=== PATIENT | female | born 1945 | race Two or more races ===

== ENCOUNTER 2019-06-16 08:10 | Inpatient (IN) | payer OTHER, MEDICAID ==
[~2019-06-16] VITALS: Ht 162.6 cm; Wt 61.4 kg
[2019-06-16] MEDS ORDERED: MECLIZINE HCL 25 MG TAB PO ONE (09:15)
[2019-06-16] MEDS ORDERED: cloNIDine HCL 0.1 MG TAB PO ONE (09:15)
[2019-06-16 09:32] LABS: Basophils # (auto) 0 uL; Basophils % (auto) 0.5 % (0.0-2.0); Eosinophils # (auto) 0.1 uL; Eosinophils % (auto) 0.7 % (0.0-7.0); Hematocrit 44.3 % (36.0-46.0); Hemoglobin 14.6 g/dL (12.2-16.2); Lymphocytes # (auto) 0.9 uL; Lymphocytes % (auto) 9.7 % (10.0-50.0); Mean Corpuscular Hemoglobin 29.5 pg (28.0-32.0); Mean Corpuscular Volume 89.2 fL (80.0-100.0); Monocytes # (auto) 0.5 uL; Monocytes % (auto) 5.2 % (0.0-12.0); Neutrophils # (auto) 7.6 uL; Neutrophils % (auto) 83.9 % (37.0-80.0); Platelet Count (auto) 232 10^3/uL (140-450); Red Blood Cells 4.97 10^6/uL (4.0-5.20); Red Cell Distribution Width 14.5 % (11.8-14.3); White Blood Cell 9.1 10^3/uL (4.4-10.8)
[2019-06-16 09:54] LABS: INR 1.04 (0.9-1.15); Partial Thromboplastin Time 27.6 sec (23.64-32.05)
[2019-06-16 09:56] LABS: Albumin 3.9 g/dL (3.4-5.0); Anion Gap 5 (5-15); Calcium 8.7 mg/dL (8.5-10.1); Carbon Dioxide 28 mmol/L (21-32); Chloride 110 mmol/L (98-107); Glucose 97 mg/dL (74-106); Potassium 4.6 mmol/L (3.5-5.1); Sodium 143 mmol/L (136-145)
[2019-06-16 10:00] LABS: Alanine Aminotransferase 14 U/L (13-56); Alkaline Phosphatase 103 U/L (45-117); Aspartate Aminotransferase 13 U/L (15-37); BUN/Creatinine Ratio 10.1; Bilirubin, Total 0.6 mg/dL (0.2-1.0); Blood Urea Nitrogen 9 mg/dL (7-18); GFR African American 80 mL/min; GFR Non-African American 66 mL/min
[2019-06-16] MEDS ORDERED: ACETAMINOPHEN 500 MG TAB PO PRN (12:15)
[2019-06-16] MEDS ORDERED: MORPHINE SULF INJ 2 MG/ML SYRINGE 1ML IV PRN ×2 (12:15)
[2019-06-16] MEDS ORDERED: hydrALAZINE HCL 20 MG/ML VL IV PRN (12:15)
[2019-06-16] MEDS ORDERED: ONDANSETRON HCL 4 MG/2 ML VIAL IV PRN (12:15)
[2019-06-16] MEDS ORDERED: HYDROcodone-ACET 5/325MG TAB PO PRN (12:15)
[2019-06-16] MEDS ORDERED: NITROGLYCERIN 0.4 MG SL TAB SL PRN (12:15)
[2019-06-16 12:54] LABS: Cholesterol 240 mg/dL (< 200); HDL Cholesterol 54 mg/dL (40-59); LDL Cholesterol 173 mg/dL (< 100); Triglycerides 119 mg/dL (< 150)
[2019-06-16] MEDS ORDERED: SODIUM CHLORIDE 0.9% 500 ML IV ONE (13:30)
[2019-06-16 14:52] LABS: Urine Bacteria NONE SEEN /hpf (None Seen); Urine Blood TRACE /uL (Negative); Urine Specific Gravity 1.008 (1.001-1.035); Urine WBC 1 /hpf (0 - 5)
--- NOTE | 2019-06-16 16:11 | NUR ---
Telemetry admit from ER AQUILINO ABEBE admitted to Telemetry unit after SBAR received. Patient oriented to NIKOLE GOMEZ RN primary RN, unit, room, bed, and unit policies regarding patient care and visiting hours. Patient now on continuous telemetry monitoring, tele box # 61 and telemetry reading on arrival to unit is Sinus bradycardia. No s/s of distress or SOB. Pt denies having any pain at this time. Bed in lowest and locked position with side rails upx2. Pt weighed by bedscale and encouraged to call if they need something. All questions and concerns addressed, patient verbalized understanding.
[2019-06-16 16:20] VITALS: BP 116/42
[2019-06-16 17:00] VITALS: BP 116/42
--- NOTE | 2019-06-16 19:30 | NUR ---
Opening Shift Note Assumed care of patient, awake and alert. No S/S of distress/SOB or pain. Insructed on POC and to callfor assist PRN, will continue to monitor for changes Q1hr and PRN. Fall and safety precautions in place. Call light within reach.
[2019-06-16 21:34] VITALS: BP 111/36
--- NOTE | 2019-06-16 23:30 | NUR ---
ACTIVITY Assisted patient to restroom for urination and back to bed. Patient ambulated with steady gait, but complained of dizziness. After patient was assisted back to bed, bedside commode provided and explained with assist from Swedish-speaking secondary RN to patient to use throughout night to prevent falls. Patient verbalized understanding and agreement. Fall precautions in place. Will continue to monitor
--- NOTE | 2019-06-17 04:00 | NUR ---
EKG EKG done at this time per order. Printed and placed in hard chart. Patient tolerated well. Will continue to monitor
[2019-06-17 04:53] VITALS: BP 116/44
[2019-06-17 05:36] LABS: Basophils # (auto) 0 uL; Basophils % (auto) 0.8 % (0.0-2.0); Eosinophils # (auto) 0.1 uL; Eosinophils % (auto) 2.3 % (0.0-7.0); Hematocrit 39.2 % (36.0-46.0); Hemoglobin 12.9 g/dL (12.2-16.2); Lymphocytes # (auto) 1.3 uL; Lymphocytes % (auto) 24.4 % (10.0-50.0); Mean Corpuscular Hemoglobin 29.7 pg (28.0-32.0); Mean Corpuscular Volume 90.1 fL (80.0-100.0); Monocytes # (auto) 0.4 uL; Monocytes % (auto) 7.6 % (0.0-12.0); Neutrophils # (auto) 3.4 uL; Neutrophils % (auto) 64.9 % (37.0-80.0); Nucleated Red Blood Cells % 0.1 %; Platelet Count (auto) 188 10^3/uL (140-450); Red Blood Cells 4.35 10^6/uL (4.0-5.20); Red Cell Distribution Width 14.7 % (11.8-14.3); White Blood Cell 5.3 10^3/uL (4.4-10.8)
[2019-06-17 05:51] LABS: Calcium 8.1 mg/dL (8.5-10.1); Potassium 4.4 mmol/L (3.5-5.1)
[2019-06-17 05:55] LABS: Albumin 3.3 g/dL (3.4-5.0); BUN/Creatinine Ratio 17.8; Bilirubin, Total 0.5 mg/dL (0.2-1.0); Total Protein 6.7 g/dL (6.4-8.2)
--- NOTE | 2019-06-17 06:30 | NUR ---
ACTIVITY Assisted patient to BSC and back to bed. With assist from Belarusian-speaking secondary RN, patient was educated on why she needs to use BSC versus ambulating to toilet. Patient was explained that due to her complaining of dizziness, she is at increased risk for falls. Patient was also educated that per cardiology progress notes, dizziness may be due to bradycardia and medication toxicity. Patient was updated on plan of care, verbalized understanding and agreement. Will continue to monitor
--- NOTE | 2019-06-17 07:26 | NUR ---
Opening Shift Note Assumed care of patient, awake and alert. No S/S of distress/SOB. PT denies having any pain at this time. Bed in lowest and locked position with side rails up x2 and call light in reach. Instructed on POC and to call for assist PRN, will continue to monitor for changes Q1hr and PRN.
[2019-06-17 09:00] VITALS: BP 117/57
--- NOTE | 2019-06-17 09:00 | NUR ---
ORTHOSTATIC BLOOD PRESSURE PER MD ORDERS, ORTHOSTATIC BLOOD PRESSURE READINGS INITIATED. LAYING: BP 117/57 HR 42 SITTING: BP 129/62 HR 53 STANDING: BP 111/45 HR 56
[2019-06-17] MEDS: FAMOTIDINE 20 MG TAB PO SCH (09:37)
[2019-06-17] MEDS: LISINOPRIL 20 MG TAB PO SCH (10:00)
--- NOTE | 2019-06-17 10:00 | NUR ---
SPOKE TO ANGIE YOUNG. VICE PRESIDENT PAYER NOTIFIED OF PATIENT HEART RATE IN THE 30'S. VICE PRESIDENT PAYER AWARE, NO NEW ORDERS AT THIS TIME.
[2019-06-17] MEDS ORDERED: METO-169 PO (10:16)
[2019-06-17] MEDS ORDERED: LISI40TA PO (10:16)
[2019-06-17] MEDS ORDERED: OME20T PO (10:16)
[2019-06-17 13:00] VITALS: BP 133/69
--- NOTE | 2019-06-17 13:40 | NUR ---
PATIENT WALKED WITH PT. PT HEART RATE INCREASED TO THE 50-59. STRIPPER COLOR YOUNG AT BEDSIDE DURING PT EVALUATION.
[2019-06-17] MEDS ORDERED: LORazepam 2MG/ML-1ML VIAL IV ONE (15:00)
--- NOTE | 2019-06-17 16:15 | NUR ---
Social Service consult regarding Advance Directives. Provided pt with information on Advance Directive and Durable Power of Autoc[employer] Form. Pt verbalized understanding and accepted information. Will contact Plumber Assistant for any further concerns or issues.
[2019-06-17 17:06] VITALS: BP 154/84
--- NOTE | 2019-06-17 17:09 | NUR ---
Pt is an alert and oriented, kazakh speaking female that resides with her son, Leonid, who is her primary bullet swaging machine operator. Pt functions independently but does have a cane in the home. Son states he prepares all meals, does laundry, takes pt to appts and assists with whatever the pt may need. Per pt is not on home health or IHSS. Provided information on IHSS program and contact number as requested by son. Son to transport home upon discharge. Will continue to monitor and provide intervention as appropriate. Addendum: 06/17/19 at 1712 by JAYSON PAULA Amended: Links added.
--- NOTE | 2019-06-17 19:30 | NUR ---
OPENING NOTE REPORT RECEIVED FROM DAY SHIFT RN PATIENT IS A/OX4 RESTING IN BED. NO S/S OF DISTRESS. PATIENT C/O MILD HEADACHE AND IS REQUESTING PAIN MEDICATIONS. POC DISCUSSED FOR TONIGHT AND ALL QUESTIONS ANSWERED. FALL PRECAUTIONS IN PLACE, CALL LIGHT WITHIN REACH.
--- NOTE | 2019-06-17 19:30 | NUR ---
ENDORSED CARE TO NIGHT RNEILEEN.
[2019-06-17 22:00] VITALS: BP_SYST 129; BP_SYST 132; BP_SYST 136; BP_DIAS 65; BP_DIAS 73; BP_DIAS 75
[2019-06-17] MEDS ORDERED: ATORVASTATIN 20 MG TAB PO SCH (22:00)
--- NOTE | 2019-06-17 22:00 | NUR ---
ORTHOSTATIC VITALS: LAYIN/65, HR 51 SITTIN/75, HR 58 STANDIN/73, HR 56
[2019-06-18 05:00] VITALS: BP_SYST 143; BP_SYST 147; BP_SYST 150; BP_DIAS 116; BP_DIAS 81; BP_DIAS 82
--- NOTE | 2019-06-18 06:00 | NUR ---
ORTHOSTATIC VITALS: LAYIN/82, HR 52 SITTIN/81, HR 60 STANDIN/116, HR 66
--- NOTE | 2019-06-18 07:01 | NUR ---
CLOSING PATIENT IS RESTING IN BED, NO S/S OF DISTRESS. CALL LIGHT WITHIN REACH AND FALL PRECAUTIONS IN PLACE. WILL ENDORSE CARE TO AM SHIFT RN
--- NOTE | 2019-06-18 07:52 | NUR ---
Opening Note Assumed pt care from [facility] nurse. Pt is a/ox4 with no s/s of distress or SOB. Pt is currently laying in bed eating breakfast with no complaints. Discussed POC with pt; pt verbalized understanding. Safety measures maintained with call light within reach, bed in lowest position and side rails up. Will continue to monitor for changes q1hr and prn.
[2019-06-18 09:00] VITALS: BP_SYST 104; BP_SYST 117; BP_SYST 118; BP_DIAS 52; BP_DIAS 62; BP_DIAS 70
[2019-06-18] MEDS: FAMOTIDINE 20 MG TAB PO SCH (09:13)
[2019-06-18] MEDS: LISINOPRIL 20 MG TAB PO SCH (09:13)
[2019-06-18] MEDS ORDERED: ASPirin-EC 81 mg tab PO SCH (10:00)
--- NOTE | 2019-06-18 10:00 | NUR ---
Pt Ambulated with PT Pt ambulated the unit with PT using the walker. Pt tolerated ambulation well. Will continue to monitor.
--- NOTE | 2019-06-18 10:02 | NUR ---
Orthostatic VS Sitting: HR 64, BP 117/52 Laying: HR 57, BP 104/62 Standing: HR 72, BP 118/70
--- NOTE | 2019-06-18 12:17 | NUR ---
Nutrition consult/assessment Notes please see attached link for complete assessment Est. Needs BW [id number] kcal (25-30 kcal/kgBW), 61-73 gms pro (1.0-1.2 gms/kgBW). Will continue to monitor pertinent labs and reassess nutrient need prn Addendum: 06/18/19 at [address] Amended: Links added.
[2019-06-18 13:00] VITALS: BP 119/60
[2019-06-18] MEDS ORDERED: ATO40T PO (14:32)
[2019-06-18] MEDS ORDERED: ASPI-378 PO (14:32)
[2019-06-18 15:11] VITALS: BP 150/80
--- NOTE | 2019-06-18 16:10 | NUR ---
CHERYL HARO FOR D/C CLEARANCE Addendum: 06/18/19 at 1620 by ADRIANA BRADFORD RN RN Dr Luis has cleared pt for d/c
[2019-06-18 16:54] VITALS: BP 142/55
--- NOTE | 2019-06-18 17:11 | NUR ---
Discharge planning per consult, patient has orders for home sunshine and DME. [facility] and auths are pending. Addendum: 06/19/19 at 1149 by ARELY SEVERINO [facility] did accept per Filomena and start of care will be within 24-48 hours. Auths obtained for walker and home health from [facility]. Skyler-[id number]. [id number]. Both vendors were provided with auth numbers. Walker will be delivered between 1-4 per Yael at [facility]. Confirmed address with son Leonid. He asked about a shower chair, advised to refer to PCP. He verbalized understanding.
[2019-06-18 17:28] VITALS: BP 142/55
--- NOTE | 2019-06-18 18:14 | NUR ---
Confirm Patient's Address for Walker [place] [address] [place] [address]
--- NOTE | 2019-06-18 18:18 | NUR ---
Paged Adhesive Sprayer Plaster Mixer Paged to see if patient can be d/c'ed while waiting for HH and walker to start tomorrow. Awaiting call back.
--- NOTE | 2019-06-18 18:28 | NUR ---
Social Serviced Called Back Okay to send home tonight; homehealth will start within 48 hours of d/c. Will follow through with orders.
--- NOTE | 2019-06-18 18:40 | NUR ---
IV D/C'ed IV removed from pt's R FA. Catheter removed fully intact. Site is asymptomatic. Pressure applied to site for 3 minutes with gauze and then wrapped in coban. Pt instructed to keep dressing on for 30 minutes. Pt verbalized understanding.
--- NOTE | 2019-06-18 18:46 | NUR ---
Pt D/C'ed Off Unit Pt discharged off unit via wheelchair accompanied by her . Pt has all belongings, education material, follow up appointments, and all questions were answered. Pt and is aware that Home Health will being 48 hrs post d/c and that the walker will be delivered to pt's home.
== END 2019-06-18 18:46 | disposition home health service (06) | DRG 310 ==
LOC: ER 08:10 → TELE 08:11 → TELE-WESTW 16:09
PROVIDERS: ADMIT Nurse Practitioner Acute Care; ATTEND Internal Medicine
DX: R00.1 Bradycardia, unspecified (principal); I10 Essential (primary) hypertension; M19.90 Unspecified osteoarthritis, unspecified site; E78.5 Hyperlipidemia, unspecified; K21.9 Gastro-esophageal reflux disease without esophagitis; Z79.899 Other long term (current) drug therapy; Z82.49 Family history of ischemic heart disease and other diseases of the circulatory system; Z91.81 History of falling
CPT/HCPCS: 36415; 70450; 70551; 71045; 80053; 80061; 81001; 82533; 83036; 84443; 84484; 85025; 85610; 85730; 93005; 93306; 93886; 96361; 96374; 99291; G0378

== ENCOUNTER 2025-06-01 20:15 | Emergency (ER) | payer OTHER, MEDICAID ==
[~2025-06-01] VITALS: Ht 167.6 cm; Wt 61.8 kg
[~2025-06-01 20:15] MED LIST: ASPI-378 PO; ATOR-507 PO; LISI40TA16 PO; OME20T PO
[2025-06-01 20:20] VITALS: TEMP 97.6
--- NOTE | 2025-06-01 21:01 | ED.PDOC ---
Musculoskeletal HPI Comments 80-year-old female complains of left leg pain from left calf area to radiating to left hip. Patient states that she fell a couple of days ago. The pain is worse with movement Chief Complaint: Lower Extremity Time Seen by MD: 20:23 Primary Care Provider: ADRIANA Gudino Notes: Nurses Notes Allergies: Coded Allergies: No Known Drug Allergy (Verified Allergy, Unknown, 06/16/19) Home Meds Active Scripts Gabapentin (Once-Daily) (Gabapentin) 300 Mg Tab, 300 MG PO Q6HP PRN, #60 TAB Prov:MEAGHAN GARZA MD 06/01/25 Aspirin (ALIYAH ASPIRIN EC LOW DOSE) 81 Mg Tab, 1 TAB PO DAILY, #30 TAB Prov:GABRIELLA KAISER MD 06/18/19 Atorvastatin Calcium (Lipitor) 40 Mg Tab, 1 TAB PO DAILY, #30 TAB Prov:GABRIELLA KAISER MD 06/18/19 Reported Medications Lisinopril (Lisinopril) 40 Mg Tab, 1 TAB PO DAILY, #30 TAB 5 Refills 06/17/19 Omeprazole (Omeprazole) 20 Mg Cap, 20 MG PO, CAP 06/17/19 Information Source: Patient Mode of Arrival: Wheelchair Location: Left Extremity Location: Calf, Leg Past Medical History PAST MEDICAL HISTORY: HTN Surgical History: Denies all surgeries GLOVE CUTTER History: No Pertinent GLOVE CUTTER History Family History Family History: Reviewed,noncontributory to illness Social History Smoker: Non-Smoker Alcohol: Denies ETOH Use Drugs: Denies Drug Use Lives In: Home Musculoskeletal: reports: others (Left leg pain) All Other Systems: Reviewed and Negative Physical Exam General Appearance: Mild Distress HEENT: Normal ENT Inspection, Pharynx Normal, TMs Normal Neck: Full Range of Motion, Non-Tender, Normal, Normal Inspection Respiratory: Chest Non-Tender, Lungs Clear, No Accessory Muscle Use, No Respiratory Distress, Normal Breath Sounds Cardiovascular: No Edema, No JVD, No Murmur, No Gallop, Normal Peripheral Pulses, Regular Rate/Rhythm Breast Exam: Deferred Gastrointestinal: No Organomegaly, Non Tender, No Pulsatile Mass, Normal Bowel Sounds, Soft Genitalia: Deferred Pelvic: Deferred Rectal: Deferred Extremities: Tender Musculoskeletal : Apperance: Normal Neurologic: Alert, receiving teller II-XII nml as Tested, No Motor Deficits, Normal Affect, Normal Mood, No Sensory Deficits Cerebellar Function: Normal Reflexes: Normal Skin: Dry, Normal Color, Warm Lymphatic: No Adenopathy Was a procedure done? Was a procedure done?: No Differential Diagnosis EXT Differential Diagnosis: Cellulitis, CHF, Deep Vein Thrombosis, Compartment Syndrome, Fracture, Sprain, Dislocation, Laceration, Contusion, Strain, Neurovascular injury, Arthritis, Bursitis, Other X-Ray, Labs, Meds, VS Vital Signs Date Time Temp Pulse Resp B/P (MAP) Pulse Ox O2 Delivery O2 Flow Rate FiO2 06/01/25 22:40 Room Air* 0 21 06/01/25 22:39 66 12 153/75 (101) 95 06/01/25 20:20 97.6 63 16 190/73 98 97.6 Current Medications Medications (Trade) Dose Ordered Sig/Ihsan Route Start Time Stop Time Status Last Admin Acetaminophen/ Hydrocodone Bitart ([place] 5/325MG Tab) 1 tab ONCE ONCE PO 06/01/25 20:45 06/01/25 20:46 DC 06/01/25 22:36 Time of 1ST Reevaluation: 21:00 Reevaluation 1ST: Unchanged Patient Education/Counseling: Diagnosis, Treatment Family Education/Counseling: Diagnosis, Treatment Departure 1 Departure Time of Disposition: 23:00 Impression: Primary Impression: Left leg pain Additional Impression: Contusion of left leg Disposition: 01 HOME / SELF CARE / HOMELESS Condition: Stable e-Prescriptions Gabapentin (Once-Daily) (Gabapentin) 300 Mg Tab 300 MG PO Q6HP PRN, #60 TAB Prov: MEAGHAN GARZA MD 06/01/25 Discharged With: Self Critical Care Note Critical Care Time?: No Stability Stability form required: No Heart Score Heart Score: Heart Score Response (Comments) Value History N/A 0 EKG N/A 0 Age N/A 0 Risk Factors N/A 0 Troponin N/A 0 Total 0 MEAGHAN GARZA MD Jun 01, 2025 21:01
--- NOTE | 2025-06-01 21:10 | DVH ---
LEFT LOWER EXTREMITY VENOUS DUPLEX REASON FOR EXAMINATION: pain COMPARISON: None TECHNIQUE: Using real-time freeze-frame technique with a high-frequency transducer, multiple longitu dinal and transverse sections were obtained. Simultaneous color flow and spectral Doppler imaging wa s performed. FINDINGS: There is good visualization of the deep venous system with no intraluminal filling defects identified. Normal venous compressibility is seen and there is flow augmentation. Color flow Doppler imaging is unremarkable. IMPRESSION: NO EVIDENCE OF DEEP VENOUS THROMBOSIS.
--- NOTE | 2025-06-01 21:29 | DVH ---
CLINICAL INDICATION: pain injury TECHNIQUE: XY L FEMUR XRAY, XY L TIB FIB XRAY Comparison: XY L TIB FIB XRAY on DOS: 06/01/25, MRI LEFT KNEE WO CONTRAST on DOS: 08/24/24 FINDINGS/IMPRESSION: : There is no evidence of acute fracture or dislocation. Bony demineralization. Superior patellar enthesophyte. Note is made of a fabella. Minimal tricompartment osteophyte formation and mild medial compartment knee joint space narrowing. Phlebolith projects over the left pelvis.
[2025-06-01] MEDS ORDERED: GABA300T4 PO (21:48)
[2025-06-01] MEDS: HYDROcodone-ACET 5/325MG TAB PO ONE (22:36)
[2025-06-01 22:39] VITALS: BP 153/75; PULSE 66; RESP 12; O2SAT 95
== END 2025-06-01 22:38 | disposition home or self-care (01) ==
LOC: ER 20:15
DX: S80.12XA Contusion of left lower leg, initial encounter (principal); M25.552 Pain in left hip; I10 Essential (primary) hypertension; Z79.82 Long term (current) use of aspirin; Z79.899 Other long term (current) drug therapy; W18.39XA Other fall on same level, initial encounter; Y93.89 Activity, other specified; Y92.89 Other specified places as the place of occurrence of the external cause; Y99.8 Other external cause status
CPT/HCPCS: 73590; 93971